=== PATIENT | female | born 1950 | race Two or more races ===

== ENCOUNTER 2024-01-19 18:39 | Inpatient (IN) | payer OTHER ==
[~2024-01-19] VITALS: Ht 149.9 cm; Wt 74.8 kg
--- NOTE | 2024-01-19 19:08 | ED.PDOC ---
History of present illness HPI Comments 73-year-old female came to ER the hyperglycemia. Patient does have history of hypertension, diabetes, and dementia. Patient was picked up by family members about an hour ago, and noted that patient gradually became weak and lethargic. Blood sugar taken was over 500. Patient was given a shot of insulin, and rushed immediately to the ER. Upon arrival blood sugar was 591. 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 Hx Family History Family History: Reviewed,noncontributory to illness Social History Smoker: Non-Smoker Alcohol: Denies ETOH Use Drugs: Denies Drug Use Lives In: Home Unable to Obtain due to: Dementia Physical Exam General Appearance: No Apparent Distress, Normal HEENT: Normal ENT Inspection, Pharynx Normal, TMs Normal Neck: Full Range of Motion, Non-Tender, Normal, Normal Inspection Respiratory: Chest Non-Tender, Lungs Clear, No Accessory Muscle Use, No Respiratory Distress, Normal Breath Sounds Cardiovascular: No Edema, No JVD, No Murmur, No Gallop, Normal Peripheral Pulses, Regular Rate/Rhythm Breast Exam: Deferred Gastrointestinal: No Organomegaly, Non Tender, No Pulsatile Mass, Normal Bowel Sounds, Soft Genitalia: Deferred Pelvic: Deferred Rectal: Deferred Extremities: No calf tenderness, Normal capillary refill, Normal inspection, Normal range of motion, Non-tender, No pedal edema Musculoskeletal : Apperance: Normal Neurologic: Alert, 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 Was a procedure done?: No Differential Diagnosis (DM) Differential Diagnosis: Dehydration, DKA, Encephalopathy, Hyperglycemia X-Ray, Labs, Meds, VS Vital Signs Date Time Temp Pulse Resp B/P (MAP) Pulse Ox O2 Delivery O2 Flow Rate FiO2 11/23/24 19:30 97.8 90 16 124/41 (68) 92 97.8 01/19/24 19:03 99.4 83 18 124/63 (83) 92 Lab Test 01/19/24 23:02 01/19/24 19:19 01/19/24 19:10 01/19/24 18:59 Range/Units POC Glucose 298 H 591 *H 70-106 mg/dl White Blood Count 11.0 H 4.4-10.8 10^3/uL Red Blood Count 4.49 4.0-5.20 10^6/uL Hemoglobin 15.0 12.2-16.2 g/dL Hematocrit 46.0 36.0-46.0 % Mean Corpuscular Volume 102.3 H 80.0-100.0 fL Mean Corpuscular Hemoglobin 33.5 H 28.0-32.0 pg Mean Corpuscular Hemoglobin Concent 32.7 32.0-36.0 g/dL Red Cell Distribution Width 14.5 H 11.8-14.3 % Platelet Count 194 140-450 10^3/uL Mean Platelet Volume 10.9 H 6.9-10.8 fL Neutrophils (%) (Auto) 75.5 37.0-80.0 % Lymphocytes (%) (Auto) 14.9 10.0-50.0 % Monocytes (%) (Auto) 9.4 0.0-12.0 % Eosinophils (%) (Auto) 0.0 0.0-7.0 % Basophils (%) (Auto) 0.2 0.0-2.0 % Neutrophils # (Auto) 8.3 1.6-8.6 10 ^3/uL Lymphocytes # (Auto) 1.6 0.4-5.4 10 ^3/uL Monocytes # (Auto) 1.0 0-1.3 10 ^3/uL Eosinophils # (Auto) 0 0-0.8 10 ^3/uL Basophils # (Auto) 0 0-0.2 10 ^3/uL Nucleated Red Blood Cells 0.0 % Sodium Level 152 H 136-145 mmol/L Potassium Level 3.6 3.5-5.1 mmol/L Chloride Level 119 H 98-107 mmol/L Carbon Dioxide Level 20 20-31 mmol/L Anion Gap 13 5-15 Blood Urea Nitrogen 43 H 9-23 mg/dL Creatinine 1.16 H 0.550-1.02 mg/dL Glomerular Filtration Rate Calc 49 >90 mL/min BUN/Creatinine Ratio 37.1 H 10.0-20.0 Serum Glucose 610 *H 74-106 mg/dL Insulin Level Pending Calcium Level 9.9 8.7-10.4 mg/dL Total Bilirubin 0.6 0.2-1.0 mg/dL Aspartate Amino Transferase (AST) 30 13-40 U/L Alanine Aminotransferase (ALT) 34 7-40 U/L Alkaline Phosphatase 86 46-116 U/L Total Protein 7.7 5.7-8.2 g/dL Albumin 3.9 3.2-4.8 g/dL Blood Gas Specimen Type Venous Blood Gas Sample Site Vbg - n/a Blood Gas Patient Temperature 37.0 Arterial Blood Date Drawn [id number] Amado Test N/a Venous Blood pH 7.422 7.320-7.430 Venous Blood pCO2 at Patient Temp 30.3 L 38.0-54.0 mmHg Venous Blood pO2 at Patient Temp 55.4 H 23.0-48.0 mmHg Venous Blood HCO3 19.3 L 22.0-29.0 mmol/L Venous Bld O2 Saturation (Measured) 89.0 H 60.0-85.0 % Venous Blood Base Excess -3.8 L -2.0-3.0 mmol/L Venous Blood Total Hemoglobin 15.6 12.0-16.0 g/dL Venous Blood Oxyhemoglobin 87.3 H 0.0-79.0 % Venous Blood Carboxyhemoglobin 1.2 0.5-1.5 % Venous Blood Methemoglobin 0.7 0.0-1.5 % Blood Gas Modality Room air FiO2 % 21.0 Current Medications Medications (Trade) Dose Ordered Sig/Janusz Route Start Time Stop Time Status Last Admin Sodium Chloride 2,000 ml @ 1,000 mls/hr Q2H ONCE IV 01/19/24 19:15 01/19/24 21:14 DC 01/19/24 19:38 Insulin Human Regular (InsuLIN R) 8 units ONCE ONCE IV 01/19/24 19:15 01/19/24 19:16 DC 01/19/24 19:15 Time of 1ST Reevaluation: 19:05 Reevaluation 1ST: Unchanged Patient Education/Counseling: Diagnosis, Treatment, Other (Patient has dementia) Family Education/Counseling: Diagnosis, Treatment Departure 1 Departure Time of Disposition: 00:56 (Patient's blood work is concerning for uncontrolled diabetes. We will admit patient for further workup) Impression: Primary Impression: Uncontrolled diabetes mellitus Qualified Codes: E11.65 - Type 2 diabetes mellitus with hyperglycemia Additional Impression: Weakness Disposition: ADMITTED INPATIENT Admit to: Med Surg Condition: Serious Critical Care Note Critical Care Time?: Yes (45 min-critical care time only) Stability Stability form required: No Heart Score Heart Score: Heart Score Response (Comments) Value History Moderate Suspicious 1 EKG Repolarization Disturb 1 Age >65 2 Risk Factors 1 or 2 risk factors 1 Troponin Normal limit 0 Total 5 I personally scribed for JERED BUTT MD ([email or web address]) on 01/19/24 at 19:07. Electronically submitted by Caleb Tamez ([facility]). JERED BUTT MD Jan 19, 2024 19:07
[2024-01-19] MEDS: InsuLIN REG 1unit/0.01ml Soln (100units/ml) IV ONE (19:15)
[2024-01-19 19:35] LABS: Basophils # (auto) 0 10 ^3/uL (0-0.2); Basophils % (auto) 0.2 % (0.0-2.0); Eosinophils # (auto) 0 10 ^3/uL (0-0.8); Lymphocytes # (auto) 1.6 10 ^3/uL (0.4-5.4); Lymphocytes % (auto) 14.9 % (10.0-50.0); Mean Corpuscular Hemoglobin 33.5 pg (28.0-32.0); Mean Corpuscular Hgb Conc. 32.7 g/dL (32.0-36.0); Mean Corpuscular Volume 102.3 fL (80.0-100.0); Monocytes % (auto) 9.4 % (0.0-12.0); Neutrophils # (auto) 8.3 10 ^3/uL (1.6-8.6); Neutrophils % (auto) 75.5 % (37.0-80.0); Platelet Count (auto) 194 10^3/uL (140-450); Red Blood Cells 4.49 10^6/uL (4.0-5.20); Red Cell Distribution Width 14.5 % (11.8-14.3)
[2024-01-19] MEDS: SODIUM CHLORIDE 0.9% 2,000 ML IV ONE (19:38)
[2024-01-19 19:40] VITALS: PULSE 90; RESP 16; O2SAT 98
[2024-01-19 19:52] LABS: Alanine Aminotransferase 34 U/L (7-40); Albumin 3.9 g/dL (3.2-4.8); Alkaline Phosphatase 86 U/L (46-116); Anion Gap 13 (5-15); Aspartate Aminotransferase 30 U/L (13-40); BUN/Creatinine Ratio 37.1 (10.0-20.0); Bilirubin, Total 0.6 mg/dL (0.2-1.0); Blood Urea Nitrogen 43 mg/dL (9-23); Calcium 9.9 mg/dL (8.7-10.4); Carbon Dioxide 20 mmol/L (20-31); Chloride 119 mmol/L (98-107); Potassium 3.6 mmol/L (3.5-5.1); Sodium 152 mmol/L (136-145); Total Protein 7.7 g/dL (5.7-8.2)
[2024-01-19 19:56] LABS: Glucose 610 mg/dL (74-106)
[2024-01-19] MEDS ORDERED: DOCUSATE SOD 100 MG CAP PO PRN (21:45)
[2024-01-19] MEDS ORDERED: ACETAMINOPHEN 325 MG TAB PO PRN (21:45)
[2024-01-19] MEDS ORDERED: HYDROcodone-ACET 5/325MG TAB PO PRN (21:45)
[2024-01-19] MEDS ORDERED: ONDANSETRON HCL 4 MG/2 ML VIAL IV PRN (21:45)
[2024-01-19] MEDS ORDERED: DEXTROSE (50%) 50ML SYRG IV PRN (21:45)
[2024-01-19] MEDS: SODIUM CHLOR 0.9% PF (SALINE LOCK) 10ML VIAL/SYR IV SCH (22:00)
--- NOTE | 2024-01-19 23:38 | DVHHP2 ---
History of Present Illness Reason for Visit: Diabetes mellitus with hyperglycemia History of Present Illness The patient is a 73-year-old female with past medical history of dementia, DM, and hypertension who presented to [facility] ED for evaluation of elevated blood sugar. Patient was picked up by family members about an hour ago, and noted that patient gradually became weak and lethargic, checked blood sugar was reading over 500. Patient was given a shot of insulin, and rushed immediately to the ER. Patient was seen and evaluated in the ED, laboratory data shows WBC 11.0, platelets 194, sodium 152, potassium 3.6, BUN 43, creatinine 1.16, glucose 610. Patient was started on Accu-Chek moderate dose, please see medication orders section in the computer. On my assessment, patient denied chest pain, no headache, no dizziness, no diaphoresis, no blurry vision, no shortness of breath, no nausea, no vomiting, no fever, no chills. Patient was admitted for further evaluation and medical management. Past Medical History Dementia, DM, HTN Past Surgical History Craniectomy Family History Reviewed, noncontributory to the management of this case. Past Social History The patient lives at home, denies smoking, alcohol or illicit drugs abuse. Review of Systems Constitutional: Yes: Weakness, Other (Lethargic); No: Fever, Chills, Sweats, Malaise Eyes: No: Pain, Vision change, Conjunctivae inflammation, Eyelid inflammation, Other, Redness ENT: No: Ear pain, Ear discharge, Nose pain, Nose discharge, Nose congestion, Mouth pain, Mouth swelling, Throat pain, Throat swelling, Other Respiratory: No: Cough, Dry, Shortness of breath, SOB with excertion, Wheezing, Hemoptysis, Pleuritic Pain, Sputum, Wheezing, Other Cardiovascular: No: Chest Pain, Palpitations, Orthopnea, Paroxysmal Noc. Dyspnea, Edema, Lt Headedness, Other Gastrointestinal: No: Nausea, Vomiting, Abdominal Pain, Diarrhea, Constipation, Melena, Hematochezia, Other Genitourinary: No Dysuria, No Frequency, No Incontinence, No Hematuria, No Retention, No Other Musculoskeletal: No: other, neck pain, shoulder pain, arm pain, back pain, hand pain, leg pain, foot pain Skin: No: Rash, Lesions, Jaundice, Bruising, Other Neurological: No: Weakness, Numbness, Incoordination, Change in speech, Confusion, Seizures, Other Allergies: Coded Allergies: NO KNOWN ALLERGIES (Unverified , 01/20/24) Medications Current Medications Medications Dose Ordered Sig/Janusz Route Start Time Stop Time Status Last Admin Dose Admin Insulin Glargine 15 units BID@0700,2200 SC 01/19/24 22:00 UNV Diagnostic Test (Pha) 1 strip IQ4HR 01/20/24 00:00 UNV Insulin Human Regular IQ4HR SC 01/20/24 00:00 UNV Dextrose 50 ml UD PRN IV 01/19/24 21:45 UNV Sodium Chloride 10 ml Q8HR IV 01/19/24 22:00 UNV Acetaminophen/ Hydrocodone Bitart 1 tab Q4HP PRN PO 01/19/24 21:45 UNV Ondansetron HCl 4 mg Q4HP PRN IV 01/19/24 21:45 UNV Docusate Sodium 100 mg BIDPRN PRN PO 01/19/24 21:45 UNV Acetaminophen 650 mg Q6HP PRN PO 01/19/24 21:45 UNV Exam Vital Signs Vital Signs Date Time Temp Pulse Resp B/P (MAP) Pulse Ox O2 Delivery O2 Flow Rate FiO2 01/19/24 19:30 97.8 90 16 124/41 (68) 92 97.8 General Appearance: Alert, Oriented X3, Cooperative, No acute distress HEENT: Atraumatic, PERRLA, EOMI, Mucous membr. moist/pink Respiratory: Clear to auscultation, Normal air movement Cardiovascular: Regular rate, Normal S1, Normal S2, No murmurs Abdominal: Normal bowel sounds, Soft, No tenderness, No hepatospenomegaly Extremities: No clubbing, No cyanosis, No edema, Normal pulses, No tenderness/swelling Skin: No rashes, No breakdown, No significant lesion Neuro: Normal gait, Normal speech, Strength at 5/5 X4 ext, Normal tone, Sensation intact, Cranial nerves 3-12 NL Psych/Mental Status: Mental status NL, Mood NL Labs/Xrays Labs Test 01/19/24 23:02 01/19/24 19:19 01/19/24 19:10 Range/Units POC Glucose 298 H 70-106 mg/dl White Blood Count 11.0 H 4.4-10.8 10^3/uL Red Blood Count 4.49 4.0-5.20 10^6/uL Hemoglobin 15.0 12.2-16.2 g/dL Hematocrit 46.0 36.0-46.0 % Mean Corpuscular Volume 102.3 H 80.0-100.0 fL Mean Corpuscular Hemoglobin 33.5 H 28.0-32.0 pg Mean Corpuscular Hemoglobin Concent 32.7 32.0-36.0 g/dL Red Cell Distribution Width 14.5 H 11.8-14.3 % Platelet Count 194 140-450 10^3/uL Mean Platelet Volume 10.9 H 6.9-10.8 fL Neutrophils (%) (Auto) 75.5 37.0-80.0 % Lymphocytes (%) (Auto) 14.9 10.0-50.0 % Monocytes (%) (Auto) 9.4 0.0-12.0 % Eosinophils (%) (Auto) 0.0 0.0-7.0 % Basophils (%) (Auto) 0.2 0.0-2.0 % Neutrophils # (Auto) 8.3 1.6-8.6 10 ^3/uL Lymphocytes # (Auto) 1.6 0.4-5.4 10 ^3/uL Monocytes # (Auto) 1.0 0-1.3 10 ^3/uL Eosinophils # (Auto) 0 0-0.8 10 ^3/uL Basophils # (Auto) 0 0-0.2 10 ^3/uL Nucleated Red Blood Cells 0.0 % Sodium Level 152 H 136-145 mmol/L Potassium Level 3.6 3.5-5.1 mmol/L Chloride Level 119 H 98-107 mmol/L Carbon Dioxide Level 20 20-31 mmol/L Anion Gap 13 5-15 Blood Urea Nitrogen 43 H 9-23 mg/dL Creatinine 1.16 H 0.550-1.02 mg/dL Glomerular Filtration Rate Calc 49 >90 mL/min BUN/Creatinine Ratio 37.1 H 10.0-20.0 Serum Glucose 610 *H 74-106 mg/dL Calcium Level 9.9 8.7-10.4 mg/dL Total Bilirubin 0.6 0.2-1.0 mg/dL Aspartate Amino Transferase (AST) 30 13-40 U/L Alanine Aminotransferase (ALT) 34 7-40 U/L Alkaline Phosphatase 86 46-116 U/L Total Protein 7.7 5.7-8.2 g/dL Albumin 3.9 3.2-4.8 g/dL Blood Gas Specimen Type Venous Blood Gas Sample Site Vbg - n/a Blood Gas Patient Temperature 37.0 Arterial Blood Date Drawn [id number] Amado Test N/a Venous Blood pH 7.422 7.320-7.430 Venous Blood pCO2 at Patient Temp 30.3 L 38.0-54.0 mmHg Venous Blood pO2 at Patient Temp 55.4 H 23.0-48.0 mmHg Venous Blood HCO3 19.3 L 22.0-29.0 mmol/L Venous Bld O2 Saturation (Measured) 89.0 H 60.0-85.0 % Venous Blood Base Excess -3.8 L -2.0-3.0 mmol/L Venous Blood Total Hemoglobin 15.6 12.0-16.0 g/dL Venous Blood Oxyhemoglobin 87.3 H 0.0-79.0 % Venous Blood Carboxyhemoglobin 1.2 0.5-1.5 % Venous Blood Methemoglobin 0.7 0.0-1.5 % Blood Gas Modality Room air FiO2 % 21.0 Assessment/Plan Assessment/Plan Uncontrolled diabetes mellitus Generalized weakness Type 2 diabetes mellitus with hyperglycemia Plan 1. Admit to med surge unit 2. Breathing treatment 3. Pain control management 4. Management of fluids and electrolytes 5. Consultation for hospitalist 6. Diagnostic tests chest x-ray 7. DVT prophylaxis-on SCDs 8. Repeat labs CBC, CMP in a.m. 9. Continue with current medical management 10. Treatment plan discussed with patient and RN. Patient verbalized understanding. Plan discussed with: Patient, Other (RN) My Orders Orders - YIMI ANDREW DNP Procedure Category Date Status Time Consistent DIET 01/20/24 Transmitted Carb(Ccho)Diabetes Breakfast Insulin Lantus PHA 01/19/24 Logged (Glargine) (Lantus) 22:00 Glucose Blood PHA 01/20/24 Logged (Accu-Chek Comfort 00:00 Insulin R (Human) PHA 01/20/24 Logged (Insulin R) 00:00 Dextrose 50% Syringe PHA 01/19/24 Logged 21:45 Allergies RAFA 01/19/24 In Process 21:42 Code Status CODE 01/19/24 Transmitted 21:42 Sodium Chloride Lock PHA 01/19/24 Logged (Saline Lock Ns) 22:00 Oxygen Per Hour RT 01/19/24 Transmitted 21:42 Hydrocodone-Acet PHA 01/19/24 Logged 5/325mg Tab ([place] 21:45 Ondansetron Hcl PHA 01/19/24 Logged (Zofran) 21:45 Docusate Sodium PHA 01/19/24 Logged Capsule (Colace 21:45 Fall Risk Precautions RAFA 01/19/[address] 21:42 Complete Blood Count LAB 01/20/24 Verified 04:00 Comprehensive LAB 01/20/24 Verified Metabolic Panel 04:00 Condition: Serious RAFA 01/19/24 In Process 21:42 Acetaminophen Tablet PHA 01/19/24 Logged (Tylenol Tablet) 21:45 Sequential RAFA 01/19/24 In Process Compression Device Problem List: (1) Uncontrolled diabetes mellitus (2) Generalized weakness (3) Type 2 diabetes mellitus with hyperglycemia Date of Service: Jan 19, 2024 Billing Provider: YIMI ANDREW DNP Common Visit Codes: [id number] INP/OBS CARE (HIGH) YIMI ANDREW DNP Jan 19, 2024 23:38
[2024-01-19] MEDS ORDERED: NITROGLYCERIN 0.4 MG SL TAB SL PRN (23:45)
[2024-01-19] MEDS ORDERED: MORPHINE SULFATE INJ 2 MG/ml SYRG IV PRN (23:45)
[2024-01-20] MEDS: InsuLIN REG 1unit/0.01ml Soln (100units/ml) SC SCH (04:00)
[2024-01-20] MEDS: ACCU-CHEK COMFORT CURVE STRIP VI SCH (04:02)
[2024-01-20] MEDS: INSULIN LANTUS (GLARGINE) 1 /0.01ml (100units/ml) SC SCH (04:03)
[2024-01-20 05:42] LABS: Basophils # (auto) 0 10 ^3/uL (0-0.2); Basophils % (auto) 0.5 % (0.0-2.0); Eosinophils # (auto) 0 10 ^3/uL (0-0.8); Eosinophils % (auto) 0.2 % (0.0-7.0); Hematocrit 42.1 % (36.0-46.0); Hemoglobin 14.3 g/dL (12.2-16.2); Lymphocytes # (auto) 2.3 10 ^3/uL (0.4-5.4); Lymphocytes % (auto) 22.2 % (10.0-50.0); Mean Corpuscular Hemoglobin 33.9 pg (28.0-32.0); Mean Corpuscular Volume 99.8 fL (80.0-100.0); Monocytes # (auto) 0.9 10 ^3/uL (0-1.3); Monocytes % (auto) 8.1 % (0.0-12.0); Neutrophils # (auto) 7.3 10 ^3/uL (1.6-8.6); Platelet Count (auto) 162 10^3/uL (140-450); Red Blood Cells 4.22 10^6/uL (4.0-5.20); Red Cell Distribution Width 13.7 % (11.8-14.3); White Blood Cell 10.6 10^3/uL (4.4-10.8)
[2024-01-20 06:00] LABS: Alanine Aminotransferase 32 U/L (7-40); Albumin 3.7 g/dL (3.2-4.8); Alkaline Phosphatase 78 U/L (46-116); Anion Gap 10 (5-15); Aspartate Aminotransferase 31 U/L (13-40); BUN/Creatinine Ratio 49.3 (10.0-20.0); Blood Urea Nitrogen 34 mg/dL (9-23); Calcium 8.9 mg/dL (8.7-10.4); Carbon Dioxide 25 mmol/L (20-31); Chloride 125 mmol/L (98-107); Glucose 267 mg/dL (74-106); Potassium 3.8 mmol/L (3.5-5.1)
[2024-01-20 06:01] LABS: Bilirubin, Total 0.7 mg/dL (0.2-1.0); Sodium 160 mmol/L (136-145); Total Protein 7.1 g/dL (5.7-8.2)
[2024-01-20 07:30] VITALS: PULSE 73; RESP 26; O2SAT 94
[2024-01-20 13:52] VITALS: BP 125/60; PULSE 78; RESP 20; TEMP 99.7; O2SAT 95
[2024-01-20] MEDS: D5W 5% 1,000 ML IV SCH (16:15)
[2024-01-20 16:32] LABS: Chloride 125 mmol/L (98-107); Potassium 3.4 mmol/L (3.5-5.1); Sodium 159 mmol/L (136-145)
[2024-01-20 16:33] LABS: Anion Gap 10 (5-15); Carbon Dioxide 24 mmol/L (20-31)
[2024-01-20 16:38] LABS: BUN/Creatinine Ratio 35.3 (10.0-20.0); Glucose 210 mg/dL (74-106)
[2024-01-20 16:42] LABS: Blood Urea Nitrogen 24 mg/dL (9-23)
[2024-01-20 16:50] VITALS: BP 147/50; PULSE 79; RESP 18; TEMP 99.4; O2SAT 98
--- NOTE | 2024-01-20 16:52 | DVHPN2 ---
Subjective Assuming the care of the patient was from today onwards. This is a 73-year-old female with a known history of diabetes mellitus type 2, hypotension, Alzheimer's dementia initially presented to the hospital with a high blood sugars. Patient was labs were checked sodium is 160 repeat one is 159. Reviewed: Care Plan Changes from previous H/P or p: No Changes Eyes: No Pain, No Vision change, No Conjunctivae inflammation, No Eyelid inflammation, No Other, No Redness ENT: No Ear pain, No Ear discharge, No Nose pain, No Nose discharge, No Nose congestion, No Mouth pain, No Mouth swelling, No Throat pain, No Throat swelling, No Other Cardiovascular: No Chest Pain, No Palpitations, No Orthopnea, No Paroxysmal Noc. Dyspnea, No Edema, No Lt Headedness, No Other Respiratory: No Cough, No Dry, No Shortness of breath, No SOB with excertion, No Wheezing, No Hemoptysis, No Pleuritic Pain, No Sputum, No Other Gastrointestinal: No Nausea, No Vomiting, No Abdominal Pain, No Diarrhea, No Constipation, No Melena, No Hematochezia, No Other Genitourinary: No Dysuria, No Frequency, No Incontinence, No Hematuria, No Retention, No Other Musculoskeletal: No other, No neck pain, No shoulder pain, No arm pain, No back pain, No hand pain, No leg pain, No foot pain Skin: No Rash, No Lesions, No Jaundice, No Bruising, No Other Objective Vitals Vital Signs Date Time Temp Pulse Resp B/P (MAP) Pulse Ox O2 Delivery O2 Flow Rate FiO2 01/20/24 13:52 99.7 78 20 125/60 (81) 95 99.7 01/20/24 07:30 Room Air* 0 21 Intake/Output Intake and Output 01/20/24 07:00 Intake Total 2000 ml Balance 2000 ml IV Total 2000 ml Exam HEENT pupils are reactive Neck is supple CV is S1-S2 regular rate and rhythm Respiratory diminished breath sound bases GI posterior bowel sound Extremity no edema AVIONICS ELECTRICAL ENGINEER following commands Medications Current Medications Medications Dose Ordered Sig/Janusz Route Start Time Stop Time Status Last Admin Dose Admin Insulin Glargine 15 units BID@0700,2200 SC 01/19/24 22:00 01/20/24 07:51 15 UNITS Diagnostic Test (Pha) 1 strip IQ4HR 01/20/24 00:00 01/20/24 15:45 1 STRIP Insulin Human Regular IQ4HR SC 01/20/24 00:00 01/20/24 15:45 8 UNITS Dextrose 50 ml UD PRN IV 01/19/24 21:45 Sodium Chloride 10 ml Q8HR IV 01/19/24 22:00 01/20/24 14:03 10 ML Acetaminophen/ Hydrocodone Bitart 1 tab Q4HP PRN PO 01/19/24 21:45 Ondansetron HCl 4 mg Q4HP PRN IV 01/19/24 21:45 Docusate Sodium 100 mg BIDPRN PRN PO 01/19/24 21:45 Acetaminophen 650 mg Q6HP PRN PO 01/19/24 21:45 Nitroglycerin 0.4 mg Q5MINP PRN SL 01/19/24 23:45 Morphine Sulfate 2 mg Q30M PRN IV 01/19/24 23:45 Dextrose 1,000 ml @ 100 mls/hr Q10H IV 01/20/24 16:15 UNV Laboratory Results Laboratory Tests 01/20/24 05:29 01/20/24 16:07 Chemistry Test 01/19/24 19:19 01/20/24 05:29 01/20/24 16:07 Albumin 3.9 g/dL (3.2-4.8) 3.7 g/dL (3.2-4.8) Calcium Level 9.9 mg/dL (8.7-10.4) 8.9 mg/dL (8.7-10.4) 9.0 mg/dL (8.7-10.4) Total Protein 7.7 g/dL (5.7-8.2) 7.1 g/dL (5.7-8.2) LFT Test 01/19/24 19:19 01/20/24 05:29 Alanine Aminotransferase (ALT) 34 U/L (7-40) 32 U/L (7-40) Alkaline Phosphatase 86 U/L (46-116) 78 U/L (46-116) Aspartate Amino Transferase (AST) 30 U/L (13-40) 31 U/L (13-40) Total Bilirubin 0.6 mg/dL (0.2-1.0) 0.7 mg/dL (0.2-1.0) HgA1c, TSH Test 01/20/24 05:29 Hemoglobin A1c 8.9 % A1C (<5.7) H Blood Gas Results Test 01/19/24 19:10 FiO2 % 21.0 Assessment/Plan Assessment/Plan 73-year-old female with a known history of diabetes mellitus type 2, hypertension, Alzheimer dementia initially present with a history with a high blood sugar found to have 1. Hyperglycemia in the setting of Diabetes mellitus type 2 insulin-dependent 2. Hypernatremia 3. Hypotension 4. Alzheimer dementia 5. Agitation/behavior disorder -start D5W at 100 mL/hour, BNP q.6 hours, nephrology consultation Discharge plan once sodium numbers are better. Plan discussed with: Patient, Daughter My Orders Orders - ISIS SANCHES MD Procedure Category Date Status Time D5w 5% (Dextrose 5%) PHA 01/20/24 Logged 16:15 *[facility] CONS 01/20/24 Transmitted -[place] 16:03 Basic Metabolic Panel LAB 01/20/24 Transmitted 18:00 Basic Metabolic Panel LAB 01/21/24 Verified 00:00 Basic Metabolic Panel LAB 01/21/24 Verified 06:00 Basic Metabolic Panel LAB 01/21/24 Verified 12:00 Basic Metabolic Panel LAB 01/21/24 Verified 18:00 Date of Service: Jan 20, 2024 Billing Provider: ISIS SANCHES MD Common Visit Codes: [id number] INP/OBS CARE(HIGH) ISIS SANCHES MD Jan 20, 2024 16:52
[2024-01-20 18:52] LABS: Chloride 126 mmol/L (98-107); Potassium 3.3 mmol/L (3.5-5.1)
[2024-01-20 18:53] LABS: Anion Gap 10 (5-15); Carbon Dioxide 25 mmol/L (20-31)
[2024-01-20 18:54] LABS: Calcium 9.1 mg/dL (8.7-10.4)
[2024-01-20 18:58] LABS: BUN/Creatinine Ratio 42.1 (10.0-20.0); Blood Urea Nitrogen 24 mg/dL (9-23); Glucose 80 mg/dL (74-106)
[2024-01-20 19:15] LABS: Sodium 161 mmol/L (136-145)
[2024-01-20 20:00] VITALS: RESP 18; O2SAT 95
[2024-01-20 22:00] VITALS: BP 159/69; PULSE 65; RESP 18; TEMP 99.4; O2SAT 95
[2024-01-21 00:57] LABS: Chloride 122 mmol/L (98-107); Potassium 3.2 mmol/L (3.5-5.1); Sodium 157 mmol/L (136-145)
[2024-01-21 00:58] LABS: Anion Gap 8 (5-15); Carbon Dioxide 27 mmol/L (20-31)
[2024-01-21 00:59] LABS: Calcium 8.8 mg/dL (8.7-10.4)
[2024-01-21 01:04] LABS: BUN/Creatinine Ratio 31.7 (10.0-20.0); Blood Urea Nitrogen 20 mg/dL (9-23); Glucose 135 mg/dL (74-106)
[2024-01-21 05:00] VITALS: BP 142/61; PULSE 69; RESP 18; TEMP 98.1; O2SAT 96
[2024-01-21 07:33] LABS: Anion Gap 9 (5-15); Calcium 8.7 mg/dL (8.7-10.4); Carbon Dioxide 25 mmol/L (20-31); Chloride 118 mmol/L (98-107); Potassium 2.9 mmol/L (3.5-5.1)
[2024-01-21 07:40] LABS: BUN/Creatinine Ratio 29.8 (10.0-20.0); Blood Urea Nitrogen 17 mg/dL (9-23); Glucose 170 mg/dL (74-106)
[2024-01-21 07:47] LABS: Sodium 152 mmol/L (136-145)
[2024-01-21 08:00] VITALS: BP 134/90; PULSE 78; RESP 20; TEMP 100.1; O2SAT 93
[2024-01-21 11:09] LABS: Magnesium 1.9 mg/dL (1.6-2.6)
[2024-01-21 11:10] LABS: Phosphorus 2.7 mg/dL (2.4-5.1)
[2024-01-21] MEDS: POTASSIUM EFFERVESENT TAB 25 MEQ PO ONE (11:15)
--- NOTE | 2024-01-21 11:34 | DVHCONRES ---
Date Seen: Jan 21, 2024 Resident Creating Document: PRIMO ARROYO RESIDENT Referring Physician Dr Magallon Reason for Consultation Hypernatremia History of Present Illness Patient is 73-year-old female with medical history of diabetes mellitus type 2, dementia, hypertension, hyperlipidemia who presented to hospital with a chief complaint of generalized weakness. As per patient's family patient had few days of diarrhea episode after ingestion of milk, worsening generalized weakness prompted her to visit in the hospital. Nephrology consultation was done for hyper natremia, 2 L of fluid given during initial hospital course. At the time of evaluation patient's sodium improved from 162 to 152. Patient denying any other complaints at this point. Past Medical History Diabetes mellitus type 2, hypertension, hyperlipidemia, dementia Past Surgical History None Family History: Patient reports no known family medical history. Family History No pertinent history Social History Patient denied any drug use, nonsmoker. Allergies: Coded Allergies: NO KNOWN ALLERGIES (Unverified , 01/20/24) Current Medications Current Medications Medications (Trade) Dose Ordered Sig/Janusz Route PRN Reason Start Time Stop Time Status Last Admin Dextrose 1,000 ml @ 100 mls/hr Q10H IV 01/20/24 16:15 01/21/24 02:26 Review of Systems Eyes: No Pain, No Vision change, No Conjunctivae inflammation, No Eyelid inflammation, No Other, No Redness ENT: No Ear pain, No Ear discharge, No Nose pain, No Nose discharge, No Nose congestion, No Mouth pain, No Mouth swelling, No Throat pain, No Throat swelling, No Other Cardiovascular: No Chest Pain, No Palpitations, No Orthopnea, No Paroxysmal Noc. Dyspnea, No Edema, No Lt Headedness, No Other Respiratory: No Cough, No Dry, No Shortness of breath, No SOB with excertion, No Wheezing, No Hemoptysis, No Pleuritic Pain, No Sputum, No Other Gastrointestinal: No Nausea, No Vomiting, No Abdominal Pain, No Diarrhea, No Constipation, No Melena, No Hematochezia, No Other Genitourinary: No Dysuria, No Frequency, No Incontinence, No Hematuria, No Retention, No Other Musculoskeletal: No other, No neck pain, No shoulder pain, No arm pain, No back pain, No hand pain, No leg pain, No foot pain Skin: No Rash, No Lesions, No Jaundice, No Bruising, No Other Vital Signs Vital Signs Date Time Temp Pulse Resp B/P (MAP) Pulse Ox O2 Delivery O2 Flow Rate FiO2 01/21/24 08:00 Room Air* 0 21 01/21/24 08:00 100.1 78 20 134/90 (105) 93 100.1 Physical Exam General Appearance: Well-developed, not in acute distress. Head Exam: Normal inspection Neck Exam: Normal inspection. Non-tender. Normal alignment Pulmonary/Respiratory: Chest non-tender. Clear bilateral breath sounds Cardiovascular/Chest: Regular rate and rhythm. No murmurs. No JVD. Peripheral Pulses: 2+ Radial (R). 2+ Radial (L). 2+ Pedal (R). 2+ Pedal (L) Abdominal Exam: Normal bowel sounds. Soft. Nontender. No hepatospenomegaly. No masses Ankle Exam: Negative ankle edema Lower extremities: 1 + bilateral lower extremity edema Neuro/Mental Status: A&O x2. Labs/Diagnostic Data Labs Test 01/21/24 07:11 01/21/24 06:16 01/20/24 05:29 01/19/24 19:19 Range/Units POC Glucose 185 H 70-106 mg/dl Sodium Level 152 #H 136-145 mmol/L Potassium Level 2.9 L 3.5-5.1 mmol/L Chloride Level 118 H 98-107 mmol/L Carbon Dioxide Level 25 20-31 mmol/L Anion Gap 9 5-15 Blood Urea Nitrogen 17 9-23 mg/dL Creatinine 0.57 0.550-1.02 mg/dL Glomerular Filtration Rate Calc 95 >90 mL/min BUN/Creatinine Ratio 29.8 H 10.0-20.0 Serum Glucose 170 H 74-106 mg/dL Calcium Level 8.7 8.7-10.4 mg/dL Phosphorus Level 2.7 2.4-5.1 mg/dL Magnesium Level 1.9 1.6-2.6 mg/dL White Blood Count 10.6 4.4-10.8 10^3/uL Red Blood Count 4.22 4.0-5.20 10^6/uL Hemoglobin 14.3 12.2-16.2 g/dL Hematocrit 42.1 36.0-46.0 % Mean Corpuscular Volume 99.8 80.0-100.0 fL Mean Corpuscular Hemoglobin 33.9 H 28.0-32.0 pg Mean Corpuscular Hemoglobin Concent 34.0 32.0-36.0 g/dL Red Cell Distribution Width 13.7 11.8-14.3 % Platelet Count 162 140-450 10^3/uL Mean Platelet Volume 10.2 6.9-10.8 fL Neutrophils (%) (Auto) 69.0 37.0-80.0 % Lymphocytes (%) (Auto) 22.2 10.0-50.0 % Monocytes (%) (Auto) 8.1 0.0-12.0 % Eosinophils (%) (Auto) 0.2 0.0-7.0 % Basophils (%) (Auto) 0.5 0.0-2.0 % Neutrophils # (Auto) 7.3 1.6-8.6 10 ^3/uL Lymphocytes # (Auto) 2.3 0.4-5.4 10 ^3/uL Monocytes # (Auto) 0.9 0-1.3 10 ^3/uL Eosinophils # (Auto) 0 0-0.8 10 ^3/uL Basophils # (Auto) 0 0-0.2 10 ^3/uL Nucleated Red Blood Cells 0.0 % Hemoglobin A1c 8.9 H <5.7 % A1C Total Bilirubin 0.7 0.2-1.0 mg/dL Aspartate Amino Transferase (AST) 31 13-40 U/L Alanine Aminotransferase (ALT) 32 7-40 U/L Alkaline Phosphatase 78 46-116 U/L Total Protein 7.1 5.7-8.2 g/dL Albumin 3.7 3.2-4.8 g/dL Test 01/19/24 19:10 Range/Units Blood Gas Specimen Type Venous Blood Gas Sample Site Vbg - n/a Blood Gas Patient Temperature 37.0 Arterial Blood Date Drawn [id number] Amado Test N/a Venous Blood pH 7.422 7.320-7.430 Venous Blood pCO2 at Patient Temp 30.3 L 38.0-54.0 mmHg Venous Blood pO2 at Patient Temp 55.4 H 23.0-48.0 mmHg Venous Blood HCO3 19.3 L 22.0-29.0 mmol/L Venous Bld O2 Saturation (Measured) 89.0 H 60.0-85.0 % Venous Blood Base Excess -3.8 L -2.0-3.0 mmol/L Venous Blood Total Hemoglobin 15.6 12.0-16.0 g/dL Venous Blood Oxyhemoglobin 87.3 H 0.0-79.0 % Venous Blood Carboxyhemoglobin 1.2 0.5-1.5 % Venous Blood Methemoglobin 0.7 0.0-1.5 % Blood Gas Modality Room air FiO2 % 21.0 Assessment Patient is confused five 1st JIM due to hemodynamically mediated in setting of insensible water loss: Creatinine improved from 1.162 to 0.57 Uncontrolled diabetes mellitus type 2 Hypernatremia Hypokalemia Alzheimer disease Dehydration Plan/recommendation -continue IV fluid with D5W 100 mL/hour, can transition to half NS once sodium level at 145. KCL replacement -continue monitor urine output, strict I&O -avoid nephrotoxic drugs -pending he urinalysis, urine sodium, urine protein/creatinine, urine creatinine, osmolality of urine, magnesium, phosphorus, PTH level. -repeat BNP at noon. -replenish potassium. Patient seen and examined by myself with the medicine resident around today I agree with the above assessment and plan Plan discussed with: Patient, Daughter, Other (RN) PRIMO ARROYO Jan 21, 2024 11:34 PAULO SHUKLA MD Jan 21, 2024 15:14
[2024-01-21 12:00] VITALS: BP 120/74; PULSE 70; RESP 20; TEMP 98.2; O2SAT 97
[2024-01-21 14:02] LABS: Urine Bacteria MANY /hpf (None Seen); Urine Blood 1+ /uL (Negative); Urine Clarity Ex.Turbid (Clear); Urine Mucus FEW (None Seen); Urine Protein, UAD 1+ (Negative); Urine Specific Gravity 1.023 (1.001-1.035); Urine Urobilinogen Normal (Negative); Urine WBC 101 /hpf (0 - 5); Urine pH 5.5 (5.0-9.0)
[2024-01-21 14:05] LABS: Urine Color Yellow (Yellow)
[2024-01-21 14:11] LABS: Protein, Urine 121.1 mg/dL (1-14)
[2024-01-21 14:14] LABS: Creatinine, Urine 123.5 mg/dL (30.0-125.0); Urine Protein/Creatinine Ratio 0.98
[2024-01-21 15:01] LABS: Chloride 112 mmol/L (98-107)
[2024-01-21 15:04] LABS: Anion Gap 9 (5-15); Calcium 8.6 mg/dL (8.7-10.4); Carbon Dioxide 24 mmol/L (20-31)
[2024-01-21 15:09] LABS: Glucose 291 mg/dL (74-106)
[2024-01-21 15:13] LABS: BUN/Creatinine Ratio 21.2 (10.0-20.0); Blood Urea Nitrogen 14 mg/dL (9-23); Potassium 3.6 mmol/L (3.5-5.1)
[2024-01-21 15:14] LABS: Sodium 145 mmol/L (136-145)
--- NOTE | 2024-01-21 15:42 | DVHDS2 ---
Discharge Summary Date of Admission Jan 19, 2024 at 23:36 Date of Discharge: Jan 21, 2024 Labs/Diagnostic Data: Laboratory Results Test 01/21/24 14:41 01/21/24 11:30 01/21/24 06:16 01/20/24 05:29 Sodium Level 145 mmol/L (136-145) Potassium Level 3.6 mmol/L (3.5-5.1) Chloride Level 112 mmol/L (98-107) Carbon Dioxide Level 24 mmol/L (20-31) Anion Gap 9 (5-15) Blood Urea Nitrogen 14 mg/dL (9-23) Creatinine 0.66 mg/dL (0.550-1.02) Glomerular Filtration Rate Calc 91 mL/min (>90) BUN/Creatinine Ratio 21.2 (10.0-20.0) Serum Glucose 291 mg/dL (74-106) Calcium Level 8.6 mg/dL (8.7-10.4) Urine Color Yellow (Yellow) Urine Clarity Ex.turbid (Clear) Urine pH 5.5 (5.0-9.0) Urine Specific [place] 1.023 (1.001-1.035) Urine Protein 1+ (Negative) Urine Ketones Negative (Negative) Urine Blood 1+ /uL (Negative) Urine Nitrite Negative (Negative) Urine Bilirubin Negative (Negative) Urine Urobilinogen Normal mg/dL (Negative) Urine Leukocyte Esterase 3+ /uL (Negative) Urine RBC 6 /hpf (0 - 4) Urine WBC 101 /hpf (0 - 5) Urine Squamous Epithelial Cells Mod /hpf (<5) Urine Bacteria Many /hpf (None Seen) Urine Mucus Few (None Seen) Urine Osmolality 807 mOsm/kg Urine Creatinine 123.50 mg/dL (30.0-125.0) Urine Protein/Creatinine Ratio 0.98 Urine Sodium 81 mmol/L (40-220) Urine Glucose 3+ mg/dL (Normal) Urine Total Protein 121.1 mg/dL (1-14) POC Glucose 297 mg/dl (70-106) Phosphorus Level 2.7 mg/dL (2.4-5.1) Magnesium Level 1.9 mg/dL (1.6-2.6) White Blood Count 10.6 10^3/uL (4.4-10.8) Red Blood Count 4.22 10^6/uL (4.0-5.20) Hemoglobin 14.3 g/dL (12.2-16.2) Hematocrit 42.1 % (36.0-46.0) Mean Corpuscular Volume 99.8 fL (80.0-100.0) Mean Corpuscular Hemoglobin 33.9 pg (28.0-32.0) Mean Corpuscular Hemoglobin Concent 34.0 g/dL (32.0-36.0) Red Cell Distribution Width 13.7 % (11.8-14.3) Platelet Count 162 10^3/uL (140-450) Mean Platelet Volume 10.2 fL (6.9-10.8) Neutrophils (%) (Auto) 69.0 % (37.0-80.0) Lymphocytes (%) (Auto) 22.2 % (10.0-50.0) Monocytes (%) (Auto) 8.1 % (0.0-12.0) Eosinophils (%) (Auto) 0.2 % (0.0-7.0) Basophils (%) (Auto) 0.5 % (0.0-2.0) Neutrophils # (Auto) 7.3 10 ^3/uL (1.6-8.6) Lymphocytes # (Auto) 2.3 10 ^3/uL (0.4-5.4) Monocytes # (Auto) 0.9 10 ^3/uL (0-1.3) Eosinophils # (Auto) 0 10 ^3/uL (0-0.8) Basophils # (Auto) 0 10 ^3/uL (0-0.2) Nucleated Red Blood Cells 0.0 % Hemoglobin A1c 8.9 % A1C (<5.7) Total Bilirubin 0.7 mg/dL (0.2-1.0) Aspartate Amino Transferase (AST) 31 U/L (13-40) Alanine Aminotransferase (ALT) 32 U/L (7-40) Alkaline Phosphatase 78 U/L (46-116) Total Protein 7.1 g/dL (5.7-8.2) Albumin 3.7 g/dL (3.2-4.8) Test 01/19/24 19:19 01/19/24 19:10 Blood Gas Specimen Type Venous Blood Gas Sample Site Vbg - n/a Blood Gas Patient Temperature 37.0 Arterial Blood Date Drawn [id number] Amado Test N/a Venous Blood pH 7.422 (7.320-7.430) Venous Blood pCO2 at Patient Temp 30.3 mmHg (38.0-54.0) Venous Blood pO2 at Patient Temp 55.4 mmHg (23.0-48.0) Venous Blood HCO3 19.3 mmol/L (22.0-29.0) Venous Bld O2 Saturation (Measured) 89.0 % (60.0-85.0) Venous Blood Base Excess -3.8 mmol/L (-2.0-3.0) Venous Blood Total Hemoglobin 15.6 g/dL (12.0-16.0) Venous Blood Oxyhemoglobin 87.3 % (0.0-79.0) Venous Blood Carboxyhemoglobin 1.2 % (0.5-1.5) Venous Blood Methemoglobin 0.7 % (0.0-1.5) Blood Gas Modality Room air FiO2 % 21.0 Other Laboratory Tests 01/21/24 14:41 01/20/24 05:29 Brief Hx & Hospital Course: 73-year-old female with a known history of diabetes mellitus type 2, hypertension, Alzheimer dementia initially present with a history with a high blood sugar found to have glycemia in the setting of diabetes mellitus type 2 insulin dependent. COPD patient was eventually admitted. Patient's hospital course was eventful for agitation behavior disorder. Patient is found to have hyponatremia with a sodium of 160 which was treated with D5W and currently back to normal. Patient is being discharged under stable condition. Condition at Discharge: Stable Final Diagnosis/Problems List 73-year-old female with a known history of diabetes mellitus type 2, hypertension, Alzheimer dementia initially present with a history with a high blood sugar found to have 1. Hyperglycemia in the setting of Diabetes mellitus type 2 insulin-dependent 2. Hypernatremia 3. Hypotension 4. Alzheimer dementia 5. Agitation/behavior disorder Discharge Disposition: Home SNF Discharge Will this Physician continue t: No Discharge Instruct/Medications Diet: Cardiac 2g Na,low cholest Diet comment: 1800 ADA diet Activity: No Restrictions, As Tolerated Follow Up/Referral: Follow up with the PCP in 1-2 weeks Medications: Resume home medications Discharge Statement: "Patient was advised to return to the ER or call 911 if any headaches, dizziness, shortness of breath, chest pain, abdominal pain, bleeding, fevers, or worsening of medical condition. Patient was counseled about treatment plan, medications, possible side effects, patientverbalized understanding. All questions were answered to the best of my ability. This discharge took greater then 30 minutes in planning, reviewing documentation, counseling the patient, and discussing with other team members." ASSESSMENT ASSESSMENT Assessment 73-year-old female with a known history of diabetes mellitus type 2, hypertension, Alzheimer dementia initially present with a history with a high blood sugar found to have 1. Hyperglycemia in the setting of Diabetes mellitus type 2 insulin-dependent 2. Hypernatremia 3. Hypotension 4. Alzheimer dementia 5. Agitation/behavior disorder Date of Service: Jan 21, 2024 Billing Provider: ISIS SANCHES MD Common Visit Codes: 29733-[id number] DISCH DAY >30min ISIS SANCHES MD Jan 21, 2024 15:42
[2024-01-21 16:00] VITALS: BP 145/72; PULSE 72; RESP 20; TEMP 99.4; O2SAT 94
== END 2024-01-21 19:27 | disposition home or self-care (01) | DRG 420 ==
LOC: ER 18:39 → OVERFLOW 23:36 → EAST 01-20 13:52
PROVIDERS: ADMIT Nurse Practitioner Family; ATTEND Internal Medicine
DX: E11.65 Type 2 diabetes mellitus with hyperglycemia (principal); N17.0 Acute kidney failure with tubular necrosis; E87.0 Hyperosmolality and hypernatremia; F02.80 Dementia in other diseases classified elsewhere, unspecified severity, without behavioral disturbance, psychotic disturbance, mood disturbance, and anxiety; G30.9 Alzheimer's disease, unspecified; I10 Essential (primary) hypertension; E78.5 Hyperlipidemia, unspecified; E87.6 Hypokalemia; E86.0 Dehydration; F91.9 Conduct disorder, unspecified; J44.9 Chronic obstructive pulmonary disease, unspecified; Z79.4 Long term (current) use of insulin
CPT/HCPCS: 36415; 36600; 80048; 80053; 81001; 82306; 82570; 82805; 82962; 83036; 83525; 83735; 83935; 83970; 84100; 84156; 84300; 85025; 99291; G0378; J1815